=== PATIENT | female | born 1980 | race Caucasian/White ===

== ENCOUNTER 2021-04-03 21:23 | Emergency (ER) | payer SELFPAY ==
[~2021-04-03] VITALS: Ht 170.2 cm; Wt 80.0 kg
[2021-04-03] MEDS ORDERED: ACETAMINOPHEN 500MG TABLET PO ONE (22:00)
[2021-04-03 23:17] VITALS: BP 134/87
== END 2021-04-03 23:33 | disposition home or self-care (01) ==
LOC: ER 21:23
DX: M25.562 Pain in left knee (principal); W01.0XXA Fall on same level from slipping, tripping and stumbling without subsequent striking against object, initial encounter; Y93.89 Activity, other specified; Y92.89 Other specified places as the place of occurrence of the external cause; Y99.8 Other external cause status
CPT/HCPCS: 29125; 73030; 73110; 73562; 99284